=== PATIENT | male | born 2005 | race Caucasian/White ===

== ENCOUNTER 2025-10-05 10:26 | Emergency (ER) | payer OTHER, SELFPAY ==
--- NOTE | ~2025-10-05 | XR_ITS ---
Examination: XR knee LT min 4V Clinical History: injury Comparison: None Technique: 4 views left knee Findings/impression: 1. No fracture or dislocation left knee. Reviewed, dictated and finalized at location R. ANT SERVER
--- NOTE | ~2025-10-05 | XR_ITS ---
Examination: XR hand LT min 3V Clinical History: injury Comparison: None Technique: 4 views left hand Findings/impression: 1. No fracture, dislocation, or radiopaque foreign body. Reviewed, dictated and finalized at location R. E PROCESSING TECHNICIAN
[2025-10-05 10:32] VITALS: BP 144/65; PULSE 91; RESP 16; TEMP 36.7; O2SAT 100
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
[2025-10-05 11:32] VITALS: BP 130/86; PULSE 99; RESP 20; TEMP 36.7; O2SAT 100
== END 2025-10-05 11:58 | disposition home or self-care (01) ==
PROVIDERS: Emergency Provider Emergency Medicine
DX: S60.222A Contusion of left hand, initial encounter (principal); V43.62XA Car passenger injured in collision with other type car in traffic accident, initial encounter
CPT/HCPCS: 73130; 73564; 99284